=== PATIENT | female | born 1995 | race Caucasian/White ===

== ENCOUNTER 2016-11-01 19:38 | Emergency (ER) | payer BC | END 2016-11-01 21:06 | disposition home or self-care (01) | LOC: CFTX 19:38 → CED 19:38 → CFTX 20:47 | DX: K05.00 Acute gingivitis, plaque induced (principal); K02.9 Dental caries, unspecified; D68.0 Von Willebrand disease | CPT/HCPCS: 99282 ==

== ENCOUNTER 2017-01-01 13:28 | Emergency (ER) | payer BC ==
[~2017-01-01] VITALS: Ht 160 cm; Wt 65.8 kg
== END 2017-01-01 15:10 | disposition home or self-care (01) ==
LOC: CED 13:28
DX: L03.116 Cellulitis of left lower limb (principal); F17.200 Nicotine dependence, unspecified, uncomplicated
CPT/HCPCS: 99282